=== PATIENT | female | born 1995 | race Two or more races ===

== ENCOUNTER → 2024-12-02 | Outpatient (CLI) | payer MEDICAID, SELFPAY ==
--- NOTE | 2024-12-02 10:04 | XR_ITS ---
Examination: Lumbar spine 3 views Technique one AP lateral coned lateral lower lumbar spine 3 views Exam date and time: December 02, 2024 1013 hours INDICATIONS: Lower back pain post 2 years ago post epidural FINDINGS: Adequate alignment lumbar vertebral bodies No lumbar fracture Suspicious for soft tissue lumbar disc bulges L4-L5, L5-S1 No significant lumbar disc narrowing No spondylolisthesis IMPRESSION: No lumbar fracture No significant arthritic change Suspicious for soft tissue disc bulges L4-L5 L5-S1, consider MRI lumbar spine without contrast follow-up
== END | disposition home or self-care (01) ==
PROVIDERS: PCP Obstetrics & Gynecology; Referring Provider Obstetrics & Gynecology; Visit Provider Obstetrics & Gynecology
DX: M54.50 Low back pain, unspecified (principal)
CPT/HCPCS: 72100

== ENCOUNTER → 2025-03-24 | Outpatient (CLI) | payer MEDICAID, SELFPAY ==
--- NOTE | 2025-03-24 16:45 | XR_ITS ---
Examination: MRI lumbar spine without contrast Date and time of exam: March 24, 2025 1659 hours INDICATIONS: Low back pain post epidural attempts August 2022 Technique: Multiple MRI axial and sagittal sections lumbar spine. Sagittal T2-weighted images, TR 3500, TE 118 T1 weighted transverse sections, TR 688 T8.5, T2-weighted sagittal sections T1 weighted sagittal sections TR 621, TE 30 T2 axial sections, TR 4, 190, TE 84. Findings: Satisfactory alignment lumbar vertebral bodies No lumbar fracture Normal marrow signal lumbar vertebral bodies Axial images demonstrate no focal lumbar disc protrusion There is no impingement upon the conus medullaris or cauda equina IMPRESSION: Satisfactory alignment lumbar vertebral bodies on the lateral view No lumbar fracture No focal lumbar disc protrusion is
== END | disposition home or self-care (01) ==
LOC: SMRI 16:13
PROVIDERS: PCP Obstetrics & Gynecology; Referring Provider Obstetrics & Gynecology; Visit Provider Obstetrics & Gynecology
DX: M54.50 Low back pain, unspecified (principal)
CPT/HCPCS: 72148